=== PATIENT | male | born 1945 | race Caucasian/White ===

== ENCOUNTER 2021-08-30 12:55 | Emergency (ER) | payer OTHER ==
[~2021-08-30] VITALS: Ht 180.3 cm; Wt 55.9 kg
[2021-08-30 13:06] VITALS: BP 135/56
--- NOTE | 2021-08-30 13:10 | NUR ---
PATIENT AMBULATED TO BED 9.
--- NOTE | 2021-08-30 13:30 | NUR ---
PT REPORTS THAT HE FORGOT TO LET DR CAVAZOS KNOW THAT HE HAD PERIOD OF DIZZINESS A FEW DAYS AGO. DR CAVAZOS MADE AWARE
--- NOTE | 2021-08-30 13:52 | NUR ---
LAB AT BEDSIDE FOR BLOOD DRAW
--- NOTE | 2021-08-30 14:00 | NUR ---
75 y/o M BIB self from home c/o R shoulder pain x 1 week. Patient A&Ox4, ambulatory, states R shoulder pain + bruising, 10/10, sharp/intermittent, non-radiating pain. Pt states flu shot 2 weeks ago and began feeling symptoms after. Denies trauma, injury, fall, fever, chills, headache. Pt placed into a gown and registered nurse cardiac. Skin pink/warm/dry. No deformity, bruising noted to R shoulder. Bed locked in lowest position, side rails x 1, call light in reach. PMH/Sx/Meds: Denies NKA
[2021-08-30 14:18] LABS: BASOPHILS % (AUTO) 0.2 % (0.0-2.0); EOSINOPHILS % (AUTO) 0.6 % (0.0-4.0); HEMATOCRIT 37.9 % (36-52); HEMOGLOBIN 12.9 g/dL (12.0-18.0); LYMPHOCYTES # (AUTO) 1.3 K/uL (2.0-11.5); MEAN CORPUSCULAR HEMOGLOBIN 33 pg (27-31); MEAN CORPUSCULAR HGB CONC 34 g/dL (33-37); MEAN CORPUSCULAR VOLUME 97.3 fL (80-94); MONOCYTES # (AUTO) 0.4 K/uL (0.8-1.0); MONOCYTES % (AUTO) 12.5 % (1.7-9.3); NEUTROPHILS # (AUTO) 1.3 K/uL (1.8-7.7); NEUTROPHILS % (AUTO) 43.7 % (42.2-75.2); PLATELET COUNT (AUTO) 139 K/uL (140-450); RED BLOOD CELL COUNT(AUTO) 3.89 MIL/uL (4.20-6.10)
[2021-08-30 14:33] LABS: ANION GAP 10.8 (8-16); ASPARTATE AMINOTRANSFERASE 18 U/L (15-37); CHLORIDE 103 mmol/L (98-107); CREATININE 0.9 mg/dL (0.6-1.3); GLUCOSE 103 mg/dL (74-106); POTASSIUM 3.8 mmol/L (3.5-5.1); SODIUM SERUM 140 mmol/L (136-145); TOTAL BILIRUBIN 0.7 mg/dL (0.0-1.0); UREA NITROGEN, BLOOD 16 mg/dL (7-18)
[2021-08-30 15:07] VITALS: BP 110/44
--- NOTE | 2021-08-30 15:07 | NUR ---
Patient discharged with v/s stable. Written and verbal after care instructions given and explained. Patient verbalized understanding. Ambulatory with steady gait. All questions addressed prior to discharge. Advised to follow up with PMD.
== END 2021-08-30 15:07 | disposition home or self-care (01) ==
LOC: MED 12:55
DX: M79.10 Myalgia, unspecified site (principal); M25.511 Pain in right shoulder; R42 Dizziness and giddiness; Z23 Encounter for immunization
CPT/HCPCS: 36415; 71045; 80053; 84484; 85025; 93005; 99284; Q0092